=== PATIENT | female | born 1970 | race African-American/Black ===

== ENCOUNTER 2018-07-21 11:22 | Emergency (ER) | payer MEDICAID ==
[~2018-07-21] VITALS: Ht 154.9 cm; Wt 105.2 kg
[2018-07-21 12:47] VITALS: BP 145/96
== END 2018-07-21 14:05 | disposition home or self-care (01) ==
LOC: ER 11:22
DX: J02.9 Acute pharyngitis, unspecified (principal); H61.22 Impacted cerumen, left ear; I11.0 Hypertensive heart disease with heart failure; I50.9 Heart failure, unspecified; F17.210 Nicotine dependence, cigarettes, uncomplicated